=== PATIENT | female | born 1945 | race Caucasian/White ===

== ENCOUNTER 2022-09-11 09:19 | Emergency (ER) | payer OTHER ==
[2022-09-11] MEDS ORDERED: HYDROCODONE/APAP 10/325 TAB ONE (09:41)
--- NOTE | 2022-09-11 10:03 | EDPHYS ---
Physician Documentation [facility] Name: April Stevenson Age: 77 yrs Sex: Female : 1945 Arrival Date: 09/11/2022 Time: 09:22 Bed 5 Private MD: Sina Barrera V ED Physician Julio Nazario HPI: 09/11 09:36 This 77 yrs old Female presents to ER via Ambulatory with complaints of left jl9 lower dental pain. Patient had dental work a few days ago and was not given any pain medication or anitbiotics. . 09:36 Onset: The symptoms/episode began/occurred 1 day(s) ago. Associated signs and symptoms: jl9 The patient has no apparent associated signs or symptoms. The pain does not radiate. Severity of symptoms: in the emergency department the symptoms a " 5" out of "10". Historical: - Allergies: 09:36 No Known Allergies; ll1 - PMHx: 09:27 Depression; GERD; Hypertension; ss - PSHx: 09:36 hip SX; "ulcer surgery"; Cholecystectomy; ll1 - Immunization history:: Adult Immunizations up to date, Client reports receiving the 2nd dose of the Covid vaccine. - Social history:: Smoking status: Patient denies any tobacco usage or history of. ROS: 09:37 Constitutional: Negative for fever, chills, and weight loss, Eyes: Negative for injury, jl9 pain, redness, and discharge. 09:37 Neck: Negative for injury, pain, and swelling, Cardiovascular: Negative for chest pain, palpitations, and edema, Respiratory: Negative for shortness of breath, cough, wheezing, and pleuritic chest pain, Abdomen/GI: Negative for abdominal pain, nausea, vomiting, diarrhea, and constipation, Back: Negative for injury and pain, : Negative for injury, bleeding, discharge, and swelling, MS/Extremity: Negative for injury and deformity, Skin: Negative for injury, rash, and discoloration, Neuro: Negative for headache, weakness, numbness, tingling, and seizure, Psych: Negative for depression, anxiety, suicide ideation, homicidal ideation, and hallucinations, Allergy/Immunology: Negative for hives, rash, and allergies, Endocrine: Negative for neck swelling, polydipsia, polyuria, polyphagia, and marked weight changes, Hematologic/Lymphatic: Negative for swollen nodes, abnormal bleeding, and unusual bruising. 09:37 ENT: Positive for dental pain. Exam: 09:37 Constitutional: This is a well developed, well nourished patient who is awake, alert, jl9 and in no acute distress. Head/Face: Normocephalic, atraumatic. Eyes: Pupils equal round and reactive to light, extra-ocular motions intact. Lids and lashes normal. Conjunctiva and sclera are non-icteric and not injected. Cornea within normal limits. Periorbital areas with no swelling, redness, or edema. 09:37 ENT: External ear(s): are unremarkable, Ear canal(s): are normal, TM's: are normal, Nose: is normal, Mouth: is normal, Dental exam: gum swelling, that is mild, specifically in the lower left third molar (#17), lower left second molar (#18) and lower left first molar (#19). 09:37 Neck: Trachea midline, no thyromegaly or masses palpated, and no cervical jl9 lymphadenopathy. Supple, full range of motion without nuchal rigidity, or vertebral point tenderness. No Meningismus. Chest/axilla: Normal chest wall appearance and motion. Nontender with no deformity. No lesions are appreciated. Cardiovascular: Regular rate and rhythm with a normal S1 and S2. No gallops, murmurs, or rubs. Normal PMI, no JVD. No pulse deficits. Respiratory: Lungs have equal breath sounds bilaterally, clear to auscultation and percussion. No rales, rhonchi or wheezes noted. No increased work of breathing, no retractions or nasal flaring. Abdomen/GI: Soft, non-tender, with normal bowel sounds. No distension or tympany. No guarding or rebound. No evidence of tenderness throughout. Back: No spinal tenderness. No costovertebral tenderness. Full range of motion. Skin: Warm, dry with normal turgor. Normal color with no rashes, no lesions, and no evidence of cellulitis. MS/ Extremity: Pulses equal, no cyanosis. Neurovascular intact. Full, normal range of motion. Neuro: Awake and alert, GCS 15, oriented to person, place, time, and situation. Cranial nerves II-XII grossly intact. Motor strength 5/5 in all extremities. Sensory grossly intact. Cerebellar exam normal. Normal gait. Psych: Awake, alert, with orientation to person, place and time. Behavior, mood, and affect are within normal limits. Vital Signs: 09:34 BP 157 / 74; Pulse 79; Resp 16; Temp 98.1(TE); Pulse Ox 100% ; Weight 51.26 kg; Height ll1 4 ft. 11 in. (149.86 cm); Pain 9/10; 10:07 BP 156 / 62; Pulse 73; Resp 15; Pulse Ox 99% on R/A; ll1 09:34 Body Mass Index 22.82 (51.26 kg, 149.86 cm) ll1 MDM: 09:28 Patient medically screened. jl9 09:37 Data reviewed: vital signs, nurses notes. Counseling: I had a detailed discussion with jl9 the patient and/or guardian regarding: the historical points, exam findings, and any diagnostic results supporting the discharge/admit diagnosis, the need for outpatient follow up, a dentist, to return to the emergency department if symptoms worsen or persist or if there are any questions or concerns that arise at home. 09:57 Response to treatment: the patient's symptoms have markedly improved after treatment. jl9 Administered Medications: 09:47 Drug: [place] (HYDROcodone-acetaminophen) 10 mg-325 mg 1 tabs {Note: rass 0, pain 9/10.} ll1 Route: PO; 10:08 Follow up: Response: No adverse reaction; Pain is decreased; RASS: Alert and Calm (0) ll1 Disposition: 15:31 Co-signature as Attending Physician, Julio Nazario MD I agree with the assessment and kdr plan of care. Disposition Summary: 09/11/22 10:02 Discharge Ordered Location: Home jl9 Condition: Stable jl9 Diagnosis - Other dental procedure status jl9 Followup: jl9 - With: Private Physician - When: 1 - 2 days - Reason: Recheck today's complaints, Continuance of care, Re-evaluation by your physician Discharge Instructions: - Discharge Summary Sheet jl9 - Dental Pain, [id number] jl9 Forms: - Medication Reconciliation Form jl9 - Thank You Letter jl9 - Antibiotic Education jl9 - Prescription Opioid Use jl9 Prescriptions: - Amoxicillin 875 mg Oral Tablet - take 1 tablet by ORAL route every 12 hours for 10 days; 20 tablet; Refills: 0, jl9 Product Selection Permitted - Tramadol 50 mg Oral Tablet - take 1 tablet by ORAL route every 8 hours as needed; 12 tablet; Refills: 0, jl9 Product Selection Permitted Signatures: Julio Nazario MD MD kdr Smirch, Shelby RN RN ss Donovan Wyatt RN RN ll1 Rene Davenport jl9
--- NOTE | 2022-09-11 10:03 | ER ---
Nurse's Notes [facility] Name: April Stevenson Age: 77 yrs Sex: Female : 1945 Arrival Date: 09/11/2022 Time: 09:22 Bed 5 Private MD: Sina Barrera V Diagnosis: Other dental procedure status Presentation: 09/11 09:28 Ebola Screen: Patient denies travel to an Ebola-affected area in the 21 days before ss illness onset. Risk Assessment: Do you want to hurt yourself or someone else? Patient reports no desire to harm self or others. 09:28 Method Of Arrival: Ambulatory ss 09:34 Chief complaint: Patient states: Had dental work 09/08. Family member states her pain ll1 has been severe since and getting worse. Was not given any antibiotics or pain med. Coronavirus screen: Vaccine status: Patient reports receiving the 2nd dose of the covid vaccine. Client denies travel out of the [place] in the last 14 days. At this time, the client does not indicate any symptoms associated with coronavirus-19. Acute neurological deficit: none identified. Initial Sepsis Screen: Does the patient meet any 2 criteria? No. Patient's initial sepsis screen is negative. Does the patient have a suspected source of infection? Yes: Other: tooth infection. Onset of symptoms was September 08, 2022. 09:34 Acuity: KOJO 4 ll1 Triage Assessment: 09:37 General: Appears uncomfortable, Behavior is cooperative, appropriate for age. Pain: ll1 Complains of pain in jaw/teeth Pain currently is 9 out of 10 on a pain scale. Quality of pain is described as aching, throbbing, Pain began 2-3 days ago. EENT: Reports pain in right cheek, left cheek, mouth, right jaw and left jaw. Historical: - Allergies: 09:36 No Known Allergies; ll1 - PMHx: 09:27 Depression; GERD; Hypertension; ss - PSHx: 09:36 hip SX; "ulcer surgery"; Cholecystectomy; ll1 - Immunization history:: Adult Immunizations up to date, Client reports receiving the 2nd dose of the Covid vaccine. - Social history:: Smoking status: Patient denies any tobacco usage or history of. Screenin:38 Abuse screen: Denies threats or abuse. Nutritional screening: No deficits noted. ll1 Tuberculosis screening: No symptoms or risk factors identified. Fall Risk Total Cal[place]jas Fall Scale indicates No Risk (0-24 pts). Vital Signs: 09:34 BP 157 / 74; Pulse 79; Resp 16; Temp 98.1(TE); Pulse Ox 100% ; Weight 51.26 kg; Height ll1 4 ft. 11 in. (149.86 cm); Pain 9/10; 10:07 BP 156 / 62; Pulse 73; Resp 15; Pulse Ox 99% on R/A; ll1 09:34 Body Mass Index 22.82 (51.26 kg, 149.86 cm) ll1 ED Course: 09:22 Patient arrived in ED. as 09:22 Sina Barrera MD is Private Physician. as 09:27 Arm band placed on Patient placed in an exam room, on a stretcher. ss 09:28 Rene Davenport is [facility]. jl9 09:28 Julio Nazario MD is Attending Physician. jl9 09:31 Donovan Wyatt, LOBITO is Primary Nurse. ll1 09:36 Triage completed. ll1 09:38 Patient has correct armband on for positive identification. Bed in low position. Call ll1 light in reach. Side rails up X 1. Client placed on continuous cardiac and pulse oximetry monitoring. NIBP monitoring applied. 09:48 No provider procedures requiring assistance completed. Patient did not have IV access ll1 during this emergency room visit. Administered Medications: 09:47 Drug: [place] (HYDROcodone-acetaminophen) 10 mg-325 mg 1 tabs {Note: rass 0, pain 9/10.} ll1 Route: PO; 10:08 Follow up: Response: No adverse reaction; Pain is decreased; RASS: Alert and Calm (0) ll1 Medication: 09:38 VIS not applicable for this client. ll1 Outcome: 09:48 Instructed on ll1 10:02 Discharge ordered by . jl9 10:08 Discharged to home ambulatory. ll1 10:08 Condition: stable 10:08 Discharge instructions given to patient, Instructed on discharge instructions, follow up and referral plans. no drinking with medication, no driving heavy equipment, medication usage, Demonstrated understanding of instructions, follow-up care, medications, Prescriptions given X 2. 10:08 Patient left the ED. ll1 Signatures: Linda Meier Shelby, LOBITO RN ss Donovan Wyatt RN RN ll1 Rene Davenport jl9 Corrections: (The following items were deleted from the chart) 09:48 09:34 BP 157 / 74; Pulse 79bpm; Resp 16bpm; Pulse Ox 100%; 51.26 kg; Height 4 ft. 11 ll1 in.; BMI: 22.8; Pain 9/10; ll1
[2022-09-11 10:19] VITALS: TEMP 98.1
[2022-09-11 10:20] VITALS: BP 156/62; O2SAT 99
== END 2022-09-11 10:08 | disposition home or self-care (01) ==
LOC: ER 09:19
DX: K08.89 Other specified disorders of teeth and supporting structures (principal); Z98.818 Other dental procedure status
CPT/HCPCS: 99283

== ENCOUNTER 2025-02-22 06:37 | Day surgery (SDC) | payer OTHER ==
[2025-02-15 11:54] LABS: Absolute Basophils 0.1 K/uL (0-0.5); Absolute Eosinophils 0.1 K/uL (0-0.5); Absolute Lymphocytes (CBC) 1.7 K/uL (0.7-4.9); Absolute Monocytes 0.5 K/uL (0.1-1.3); Absolute Neutrophil 5.5 K/uL (1.8-8.0); Basophils % 1.1 % (0-1.3); Eosinophils % 1.8 % (0-4.4); Hemoglobin 12.6 g/dL (12.0-15.0); Lymphocytes % 21.8 % (15.3-44.8); MCH 26.9 pg (27.0-35.0); MCV 81.4 fL (80-100); MPV 8.1 fL (7.6-11.3); Monocytes % 6.5 % (3.3-12.3); Neutrophils % 68.8 % (41.7-73.7); Platelets 335 thou/uL (152-406); RBC Red Blood Cell Count 4.67 M/uL (3.86-4.86); Red Cell Distribution Width 14.8 % (12.1-15.2)
[2025-02-15 12:05] LABS: Anion Gap 6.5 mEq/L (5.0-15.0); Potassium 4.5 mEq/L (3.5-5.1)
--- NOTE | 2025-02-15 12:05 | RAD REPORT ---
EXAMINATION: TWO VIEW CHEST XR CLINICAL INDICATION: Pre-op pending scalp and face mass removals TECHNIQUE: 2 views of the chest was performed. COMPARISON: 04/29/2017 FINDINGS: The lungs are hyperexpanded suggesting COPD. The heart is upper limit of normal in size. No displaced fractures evident. IMPRESSION: COPD is suspected without acute finding identified.
--- NOTE | 2025-02-15 13:17 | EKG ---
Test Date: 2025-02-15 Test Time: 11:19:51 Undercover Operator: JAEL MEASUREMENT RESULTS: Intervals: Rate: 73 LA: 174 QRSD: 74 QT: 390 QTc: 429 [place]: P: 76 LA: 174 QRS: 56 T: 71 INTERPRETIVE STATEMENTS: Normal sinus rhythm Normal ECG Compared to ECG 04/29/2017 20:49:09 No significant changes Electronically Signed On 02-15-25 13:17:09 CDT by Fredy Pereira
[2025-02-22] MEDS: Ringers Lactate 1,000 ML IV ONE (07:00)
[2025-02-22] MEDS ORDERED: propofoL 200 MG/20 ML VIAL IV ONE (07:15)
[2025-02-22] MEDS ORDERED: NS 0.9% VIAL 10 ML ONE (07:15)
[2025-02-22] MEDS ORDERED: ONDANSETRON 4 MG/2 ML VIAL ONE (07:15)
[2025-02-22] MEDS ORDERED: FENTANYL CITR 100 MCG/2 ML ONE (07:15)
[2025-02-22] MEDS ORDERED: KETOROLAC 30 MG/ML INJ ONE (07:15)
[2025-02-22] MEDS ORDERED: LIDOCAINE 1% MPF 5 ML VIAL ONE (07:15)
[2025-02-22] MEDS: CEFAZOLIN SODIUM 2 GM/VIAL ONE (07:35)
[2025-02-22] MEDS: BUPIVACAINE 0.5% PF 10 ML VIAL ONE (08:00)
[2025-02-22] MEDS ORDERED: Mastisol Adhesive Liq ONE (08:24)
--- NOTE | 2025-02-22 08:52 | P.OP ---
Date of Service: 02/22/25 Preop diagnosis: Right scalp mass x 2, right face mass Postop diagnosis: Same Procedure performed: Wide excision right scalp mass times two 4 x 2 cm with layered closure, wide excision right face mass 3 x 1 cm with layered closure and frozen sections were both Surgeon: French Rowe MD Car Dryer: None Estimated blood loss: Normal Specimen: Right scalp mass x 2, right base mass Findings: Actinic keratosis with atypia and frozen section reveals margins to be free Anesthesia: General Complications: None Drains: None Fluids and blood products: None none applicable Disposition: Recovery room Operative note: Patient brought to the OR and placed in the supine position. General anesthesia began. Patient prepped and draped in usual sterile fashion. Marcaine 0.5% plain locally for postop pain control. 15 blade used to make a 4 x 2 cm incisions to excise 2 areas of abnormal appearing skin lesions that were red and irritated appearing. Entire specimen was removed and sent to pathology after being appropriately labeled. Frozen section revealed to be actinic keratosis with atypia. Wound irrigated and bleeding controlled cautery. Flaps created. 2-0 chromic used to reapproximate subcutaneous tissue. 3-0 nylon used to close skin. Sterile dressing applied. A 3 x 1 cm incision was made on the right face to include the 0.75 pleomorphic lesion. The lesion was appropriately labeled and sent to frozen section. Frozen section revealed actinic keratosis with atypia and margins free of disease. We irrigated and controlled cautery. Flaps created. 3-0 chromic used to approximate subcutaneous tissue and close skin. Sterile dressing applied. Patient awakened and taken to recovery room in good general condition. CC: Dr. Barrera's office
[2025-02-22] MEDS ORDERED: HYDROCODONE/APAP 7.5/325 MG TAB PO PRN (08:54)
[2025-02-22 09:10] VITALS: O2SAT 100
[2025-02-22 10:32] VITALS: BP 153/62; TEMP 97.8
== END 2025-02-22 10:24 | disposition home or self-care (01) ==
LOC: OR 06:37
PROVIDERS: ATTEND Surgery
PROC: 0JB00ZZ Excision of Scalp Subcutaneous Tissue and Fascia, Open Approach (ICD-10-PCS; 2025-02-22)
PROC: 0JB10ZZ Excision of Face Subcutaneous Tissue and Fascia, Open Approach (ICD-10-PCS; principal; 2025-02-22 07:30)
DX: D04.4 Carcinoma in situ of skin of scalp and neck (principal); D04.39 Carcinoma in situ of skin of other parts of face; L57.0 Actinic keratosis
CPT/HCPCS: 93005; 85025; 80048; 36415; 88331; 88332; 88305; 71046; 11643; 11624; A4216; J2704; J2003; J3010; J2405; J7120